=== PATIENT | male | born 1985 | race Two or more races ===

== ENCOUNTER → 2018-05-15 | Emergency (ER) | payer OTHER ==
[~2018-05-15] VITALS: Ht 167.6 cm; Wt 81.6 kg
[~2018-05-15] MED LIST: IBUPROFEN 600 MG TABLET PO ONE
--- NOTE | 2018-05-15 22:00 | NUR ---
Pt came in with c/o of pain to his right leg following a fall from a scooter 2 hours [employer]. Pain level is 10/10 on scale. He is A, O/4, on RA, currently having difficulty moving his affected leg.
--- NOTE | 2018-05-15 22:02 | NUR ---
Pt is noted to have cough, non-productive, lungs clear to auscultation. Pt reports he is worried he might have caught a flu from his co-worker. Pt is afebrile.
--- NOTE | 2018-05-15 22:06 | NUR ---
Xray of Rt Femur in progress
[2018-05-15 22:37] VITALS: BP 134/79
== END | disposition home or self-care (01) ==
LOC: ER 21:42
DX: S80.11XA Contusion of right lower leg, initial encounter (principal); F32.9 Major depressive disorder, single episode, unspecified; W05.1XXA Fall from non-moving nonmotorized scooter, initial encounter; Y93.89 Activity, other specified; Y92.89 Other specified places as the place of occurrence of the external cause; Y99.8 Other external cause status
CPT/HCPCS: 73552; A4606; Z7610

== ENCOUNTER 2019-04-29 13:53 | Emergency (ER) | payer OTHER ==
[~2019-04-29] VITALS: Ht 167.6 cm; Wt 86.2 kg
[2019-04-29 14:00] VITALS: BP 132/89
--- NOTE | 2019-04-29 14:00 | NUR ---
PT BIBS. AAOX4. AMBULATORY. PT C/O bilateral eye redness x 6 days with discharges. PT STATED THE REDNESS STARTED BY ITSELF. PT ABLE TO SEE WHILE WALKING. NO ACUTE DISTRESS NOTED. AWAITING MD FOR EVAL.
== END 2019-04-29 14:38 | disposition home or self-care (01) ==
LOC: ER 13:53
DX: H10.023 Other mucopurulent conjunctivitis, bilateral (principal); F32.9 Major depressive disorder, single episode, unspecified

== ENCOUNTER 2021-04-07 09:33 | Emergency (ER) | payer OTHER ==
[~2021-04-07] VITALS: Ht 162.6 cm; Wt 86.2 kg
--- NOTE | 2021-04-07 09:46 | NUR ---
TO ER BED 12, C/O CHEST DISCOMFORT AFTER EATING MEALS, AAOX3, BREATHING EVEN AND NON LABORED, CONNECTED TO MONITOR.
--- NOTE | 2021-04-07 09:50 | NUR ---
LAB AT BEDSIDE
[2021-04-07 10:07] LABS: BASOPHILS % (AUTO) 0.5 % (0.0-2.0); HEMATOCRIT 41 % (39-51); HEMOGLOBIN 13.9 g/dL (13.5-17.5); LYMPHOCYTES # (AUTO) 3.2 K/uL (0.8-4.8); LYMPHOCYTES % (AUTO) 35.9 % (20.0-44.0); MEAN CORPUSCULAR HGB CONC 34 g/dl (31.0-36.0); MEAN CORPUSCULAR VOLUME 81 fL (80-96); MONOCYTES # (AUTO) 0.6 K/uL (0.1-1.30); MONOCYTES % (AUTO) 7.1 % (2.0-12.0); NEUTROPHILS # (AUTO) 4.8 K/uL (1.8-8.9); NEUTROPHILS % (AUTO) 53.5 % (43.0-81.0); PLATELET COUNT (AUTO) 272 K/uL (150-450); RED BLOOD CELL COUNT(AUTO) 5.09 MIL/uL (4.5-6.0)
[2021-04-07 10:17] LABS: CARBON DIOXIDE 24 mmol/L (21-32); CHLORIDE 104 mmol/L (98-107); CREATININE 0.8 mg/dL (0.6-1.3); GLUCOSE 148 mg/dL (74-106); POTASSIUM 3.6 mmol/L (3.5-5.1); SODIUM SERUM 138 mmol/L (136-145); UREA NITROGEN, BLOOD 14 mg/dL (7-18)
[2021-04-07 10:23] LABS: ALANINE AMINOTRANSFERASE 38 U/L (12-78); ALBUMIN 3.6 g/dL (3.4-5.0); ALKALINE PHOSPHATASE 80 U/L (46-116); ASPARTATE AMINOTRANSFERASE 20 U/L (15-37); BILIRUBIN,TOTAL 0.3 mg/dL (0.2-1.0); TOTAL PROTEIN, SERUM 7.4 g/dL (6.4-8.2)
--- NOTE | 2021-04-07 12:07 | NUR ---
Patient discharged to home in stable condition. Written and verbal after care instructions given. Patient verbalizes understanding of instruction.
[2021-04-07 12:08] VITALS: BP 120/79
== END 2021-04-07 12:08 | disposition home or self-care (01) ==
LOC: ER 09:38
DX: F41.9 Anxiety disorder, unspecified (principal); F32.9 Major depressive disorder, single episode, unspecified
CPT/HCPCS: 36415; 80053-TC; 84484-TC; 85025-TC

== ENCOUNTER 2022-02-11 00:27 | Emergency (ER) | payer OTHER ==
[~2022-02-11] VITALS: Ht 167.6 cm; Wt 88.5 kg
--- NOTE | 2022-02-11 01:00 | NUR ---
TO ER BED 2. BIBS C/O R LATERAL LOWER LEG PAIN S/P FELL OFF A LADDER X 1 WEEK. PT IS ALERT AND ORIENTED. AMBULATORY WITH STEADY GAIT. NO DEFORMITY NOTED. CONNECTED TO MONITOR. AWAITING MD LYLES
--- NOTE | 2022-02-11 05:35 | NUR ---
Patient discharged to home in stable condition. Written and verbal after care instructions given. Patient verbalizes understanding of instruction.
[2022-02-11 05:36] VITALS: BP 122/84
== END 2022-02-11 05:36 | disposition home or self-care (01) ==
LOC: ER 00:33
DX: S83.91XA Sprain of unspecified site of right knee, initial encounter (principal); F32.A Depression, unspecified; W11.XXXA Fall on and from ladder, initial encounter; Y93.89 Activity, other specified; Y92.89 Other specified places as the place of occurrence of the external cause; Y99.8 Other external cause status
CPT/HCPCS: 73564-TC

== ENCOUNTER 2025-03-05 11:40 | Emergency (ER) | payer OTHER ==
[~2025-03-05] VITALS: Ht 167.6 cm; Wt 86.2 kg
[~2025-03-05 11:40] MED LIST changes: +AMOX-430 PO; +IBUP-1955 PO; -IBUPROFEN 600 MG TABLET PO ONE
[2025-03-05 11:53] VITALS: BP 115/70; TEMP 98.2; O2SAT 96
[2025-03-05] MEDS ORDERED: ERYT3.5O9 EACHEYE (12:18)
== END 2025-03-05 12:24 | disposition home or self-care (01) ==
LOC: ER 11:50
DX: H57.12 Ocular pain, left eye (principal)